=== PATIENT | female | born 1995 | race Caucasian/White ===

== ENCOUNTER 2018-06-20 09:16 | Emergency (ER) | payer MEDICAID ==
[~2018-06-20] VITALS: Ht 160 cm; Wt 111.6 kg
[~2018-06-20 09:16] MED LIST: WELLBUTRIN XL150 MG PO
[2018-06-20] MEDS ORDERED: CEPHALEXIN500 MG PO (12:05)
[2018-06-20] MEDS ORDERED: ZOFRAN ODT4 MG PO (12:05)
== END 2018-06-20 12:22 | disposition home or self-care (01) ==
LOC: ED 09:16
DX: J01.90 Acute sinusitis, unspecified (principal); F17.200 Nicotine dependence, unspecified, uncomplicated; Z88.0 Allergy status to penicillin; Z79.82 Long term (current) use of aspirin
CPT/HCPCS: 81001; 84703; 99283

== ENCOUNTER 2018-09-17 20:48 | Emergency (ER) | payer MEDICAID ==
[~2018-09-17] VITALS: Ht 160 cm; Wt 111.6 kg
[~2018-09-17 20:48] MED LIST changes: +CEPHALEXIN500 MG PO; +ISENTRESS400 MG PO; +TRUVADA 200 MG1 EACH PO; +ZOFRAN ODT4 MG PO
--- OUTSIDE RECORDS SUMMARY | 2018-09-17 20:52 | XMS ---
PreManage Notification: PARADISE HARRINGTON Security Mat Repairer Events No recent Security Events currently on file CRITERIA MET - [facility] - 2 Visits in 30 Days CARE PROVIDERS There are no care providers on record at this time. Luis Daniel has no Care Guidelines for this patient. Ronna VISIT COUNT (12 MO.) 3 [facility] [place] [facility]. TOTAL 3 NOTE: Visits indicate total known visits. ED/C VISIT TRACKING (12 MO.) 09/17/2018 20:[address] [facility] [place] TYPE: Emergency COMPLAINT: - CHEST PAIN 08/27/2018 12:45 ANABELLE Brown OR TYPE: Emergency COMPLAINT: - NEEDLE STICK/INJURY DIAGNOSES: - Allergy status to penicillin - Puncture wound without foreign body of right thumb without damage to nail, initial encounter - Major depressive disorder, single episode, unspecified - Puncture wound without foreign body of right thumb without damage to nail, initial encounter - Allergy status to other antibiotic agents status - Contact with hypodermic needle, initial encounter - Allergy status to other drugs, medicaments and biological substances status - Nicotine dependence, unspecified, uncomplicated 06/20/2018 09:17 ANABELLE Brown OR TYPE: Emergency COMPLAINT: - POSS UTI/VOMITING/HEADACHE DIAGNOSES: - Dysuria - Nicotine dependence, unspecified, uncomplicated - Allergy status to penicillin - Acute sinusitis, unspecified - 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
--- NOTE | 2018-09-18 12:48 | EKG ---
[facility] [address] [facility] [place], [place] [address] Signed Normal sinus rhythm Normal ECG No previous ECGs available Confirmed by MIRIAM RINCON DO ([id number]) on 09/18/2018 12:48:29 PM Electronically Signed By: MIRIAM RINCON DO 09/18/18 1248 PATIENT NAME: PARADISE HARRINGTON NILA Electrocardiogram DATE OF : [birth year] PHYSICIAN: MIRIAM RINCON DO REPORT #: [id number] REPORT IS CONFIDENTIAL AND NOT TO BE RELEASED WITHOUT AUTHORIZATION
== END 2018-09-17 22:44 | disposition home or self-care (01) ==
LOC: ED 20:48
DX: R07.9 Chest pain, unspecified (principal); F31.9 Bipolar disorder, unspecified; F17.200 Nicotine dependence, unspecified, uncomplicated; Z88.0 Allergy status to penicillin; Z88.1 Allergy status to other antibiotic agents; Z88.8 Allergy status to other drugs, medicaments and biological substances; Z79.899 Other long term (current) drug therapy
CPT/HCPCS: 36415; 71045; 80053; 84484; 85025; 93005; 93010; 99285

== ENCOUNTER 2018-12-15 14:17 | Emergency (ER) | payer MEDICAID ==
[~2018-12-15] VITALS: Ht 160 cm; Wt 111.6 kg
[2018-12-15] MEDS ORDERED: ONDANSETRON ODT8 MG PO (17:38)
== END 2018-12-15 17:53 | disposition home or self-care (01) ==
LOC: ED 14:17
DX: J10.1 Influenza due to other identified influenza virus with other respiratory manifestations (principal); F31.9 Bipolar disorder, unspecified; F17.200 Nicotine dependence, unspecified, uncomplicated; Z88.0 Allergy status to penicillin; Z88.8 Allergy status to other drugs, medicaments and biological substances; Z88.1 Allergy status to other antibiotic agents
CPT/HCPCS: 80053; 84703; 85025; 87081; 87502; 87880; 96361; 96374; 96375; 99284-25; J1885; J2405; J7030

== ENCOUNTER 2019-03-05 21:37 | Emergency (ER) | payer MEDICAID ==
[~2019-03-05] VITALS: Ht 160 cm; Wt 111.6 kg
[~2019-03-05 21:37] MED LIST changes: +ONDANSETRON ODT8 MG PO
[2019-03-05] MEDS ORDERED: VENTOLIN HFA18 GM INH (22:12)
[2019-03-06] MEDS ORDERED: OMEPRAZOLE20 MG PO (00:11)
== END 2019-03-06 00:30 | disposition home or self-care (01) ==
LOC: ED 21:37
DX: K30 Functional dyspepsia (principal); F31.9 Bipolar disorder, unspecified; F17.200 Nicotine dependence, unspecified, uncomplicated; Z88.0 Allergy status to penicillin; Z88.1 Allergy status to other antibiotic agents; Z88.6 Allergy status to analgesic agent
CPT/HCPCS: 80053; 81001; 84703; 85025; 96361; 96374; 96375; 99283-25; C9113; J2405; J7030

== ENCOUNTER 2019-10-13 21:35 | Emergency (ER) | payer MEDICAID ==
[~2019-10-13] VITALS: Ht 160 cm; Wt 129.3 kg
[~2019-10-13 21:35] MED LIST changes: +OMEPRAZOLE20 MG PO; +VENTOLIN HFA18 GM INH
--- OUTSIDE RECORDS SUMMARY | 2019-10-13 21:38 | XMS ---
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 Events No recent Security Events currently on file CRITERIA MET - [facility] CARE PROVIDERS [facility] Other 12/31/2017-[facility] DCO PHONE: Unknown NATALYA KENNEY Primary Care Current PHONE: [phone] [facility] Primary Care [facility] PCP PHONE: Unknown GALILEO NULL Primary Care [facility] PHONE: Unknown [facility] Primary Care Current OR PHONE: Unknown Guidelines Source: [facility] Guidelines Date: 05/02/2019 Care Recommendation: - Pt\T\rsquo;s PCP is\T\nbsp;Natalya Kenney MULTI MISSION HELICOPTER AIRCREWMAN\T\nbsp;of [facility] [phone]. \T\nbsp; Pt\T\rsquo;s primary insurance is [employer].\T\nbsp; Pt is currently residing outside of the [facility] but has not yet updated OHP.\T\ nbsp; Please advise pt to call OHP at or to update their address.\T\nbsp; Name, Title, [facility], [facility] Dept.\T\rdquo;\T\nbsp;\T\ nbsp;\T\nbsp;Patient \T\nbsp;has not yet established with [facility], pt is utilizing the ED for primary care needs. Amy Weiss LPN, [facility] Dept. Additional care guidelines exist for the following facilities: [facility] [place] ( 03/07/2019 ) Ronna VISIT COUNT (12 MO.) 3 ANABELLE Alfredo TOTAL 3 NOTE: Visits indicate total known visits. ED/UCC VISIT TRACKING (12 MO.) 10/13/2019 21:35 ANABELLE Brown OR TYPE: Emergency COMPLAINT: - ANKLE INJURY 03/05/2019 21:38 ANA[facility]ELLE Brown OR TYPE: Emergency COMPLAINT: - HEARTBURN,VOMITING DIAGNOSES: - Functional dyspepsia - Allergy status to analgesic agent status - Lower abdominal pain, unspecified - Allergy status to other antibiotic agents status - Bipolar disorder, unspecified - Nicotine dependence, unspecified, uncomplicated - Allergy status to penicillin 12/15/2018 14:18 ANABELLE Brown OR TYPE: Emergency COMPLAINT: - HEADACHE,VOMITING DIAGNOSES: - Allergy status to other antibiotic agents status - Flu due to oth ident influenza virus w oth resp manifest - Bipolar disorder, unspecified - Allergy status to penicillin - Nicotine dependence, unspecified, uncomplicated - Allergy status to oth drug/meds/biol subst status - Headache INPATIENT VISIT TRACKING (12 MO.) No inpatient visits to display in this time frame [email or web address]
[2019-10-13] MEDS ORDERED: QVAR REDIHALE10.6 G1 (22:09)
[2019-10-13] MEDS ORDERED: CRUTCH1 EACH (23:44)
== END 2019-10-14 00:14 | disposition home or self-care (01) ==
LOC: ED 21:35
DX: S93.401A Sprain of unspecified ligament of right ankle, initial encounter (principal); F31.9 Bipolar disorder, unspecified; F17.200 Nicotine dependence, unspecified, uncomplicated; Z88.0 Allergy status to penicillin; Z88.6 Allergy status to analgesic agent; Z88.1 Allergy status to other antibiotic agents; Z79.899 Other long term (current) drug therapy; X50.9XXA Other and unspecified overexertion or strenuous movements or postures, initial encounter
CPT/HCPCS: 73610; 99283-25; A9270

== ENCOUNTER → 2020-09-22 | Emergency (ER) | payer MEDICAID ==
[~2020-09-22] VITALS: Ht 162.6 cm; Wt 127.0 kg
[~2020-09-22] MED LIST changes: +CRUTCH1 EACH; +QVAR REDIHALE10.6 G1
--- OUTSIDE RECORDS SUMMARY | 2020-09-22 21:44 | XMS ---
PreManage Notification: PARADISE HARRINGTON Security Grant Specialist Events No recent Security Events currently on file CRITERIA MET - Group Notification - [facility] - Has Care Guidelines CARE PROVIDERS There are no care providers on record at this time. Guidelines Source: [facility] Guidelines Date: 05/02/2019 Care Recommendation: - Pt\T\rsquo;s PCP is\T\nbsp;Natalya Kenney ROCKET ENGINE MECHANIC\T\nbsp;of [facility] [phone]. \T\nbsp; Pt\T\rsquo;s primary insurance is [employer].\T\nbsp; Pt is currently residing outside of the [facility] but has not yet updated OHP.\T\ nbsp; Please advise pt to call OHP at or to update their address.\T\nbsp; Name, Title, [facility], [facility] Dept.\T\rdquo;\T\nbsp;\T\ nbsp;\T\nbsp;Patient \T\nbsp;has not yet established with [facility], pt is utilizing the ED for primary care needs. Amy Weiss LPN, [facility] Dept. Additional care guidelines exist for the following facilities: [facility] ( 03/07/2019 ) Ronna VISIT COUNT (12 MO.) [address] [place] [address] TOTAL 2 NOTE: Visits indicate total known visits. ED/UCC VISIT TRACKING (12 MO.) 09/22/2020 21:42 [facility]ELLE Brown OR TYPE: Emergency COMPLAINT: - COUGH/FEVER 10/13/2019 21:35 ANABELLE Brown OR TYPE: Emergency COMPLAINT: - ANKLE INJURY DIAGNOSES: - Allergy status to analgesic agent - Allergy status to other antibiotic agents - Nicotine dependence, unspecified, uncomplicated - Bipolar disorder, unspecified - Allergy status to penicillin - Sprain of unspecified ligament of right ankle, initial encounter - Other and unspecified overexertion or strenuous movements or postures, initial encounter - Other medical terminologist (current) drug therapy INPATIENT VISIT TRACKING (12 MO.) No inpatient visits to display in this time frame [email or web address]
--- NOTE | 2020-09-25 00:35 | PATH ---
[facility] [address] [place], [place] [address] Signed ORDERING PHYSICIAN: Mercedes Riddle MD PATIENT NAME: PARADISE HARRINGTON GENDER: F : 1995 Prior History: No cases found. SPECIMEN(S): No Source Given MOLECULAR PATHOLOGY RESULTS: SARS-CoV-2 Not Detected ADDITIONAL NOTES.: The Finger Fusion SARS-CoV-2 Assay is a multiplex real-time PCR (RT-PCR) in vitro diagnostic test intended for the qualitative detection of RNA from SARS-CoV-2 from individuals who meet COVID-19 clinical and/or epidemiological criteria. In general, SARS-CoV-2 RNA can be detected during the acute phase of infection. Positive results indicate the presence of SARS-CoV-2 RNA. Clinical correlation with patient history and other diagnostic information is necessary to determine patient infection status. Positive results do not rule out bacterial infection or co-infection with other viruses. Negative results do not preclude SARS-CoV-2 infection and should not be used as the sole basis for patient management decisions. Negative results must be combined with other clinical observations, patient history, and epidemiological information. The Finger Fusion SARS-CoV-2 Assay is not yet approved or cleared by the [place] FDA. When there are no FDA-approved or cleared tests available, and other criteria are met, FDA can make tests available under an emergency access mechanism called an Emergency Use Authorization (EUA). The EUA for this test is supported by the Supervisor Housecleaner of Health and Human Service's (HHS's) declaration that circumstances exist to justify the emergency use of in vitro diagnostics for the detection and/or diagnosis of the virus that causes COVID-19. This EUA will remain in effect for the duration of the COVID-19 declaration justifying emergency of IVDs, unless it is terminated or revoked by FDA, after which the test may no longer be used. The Finger Fusion SARS-CoV-2 Assay is for use only under EUA PATIENT NAME: PARADISE HARRINGTON EMILY NILA PATHOLOGY DATE OF : [birth year] REPORT #: [id number] PHYSICIAN: JOSE MARIA PATHOLOGY PCP: NO PRIMARY CARE PHYSICIAN REPORT IS CONFIDENTIAL AND NOT TO BE RELEASED WITHOUT AUTHORIZATION [facility] [address] [place], [place] [address] Signed in laboratories certified under the Clinical Laboratory Improvement Amendments of 1988 (CLIA) to perform high complexity tests. [facility] is certified under CLIA to perform high complexity clinical laboratory testing. Melina Paris PERFORMING LABORATORY.: Molecular testing was performed by [facility] [place] [address] (Music Specialist: Catarino Nunn D.O.; CLIA#: [id number]) Diagnostician: System Interface Pathologist Electronically Signed 09/25/2020 Copies: ~ PATIENT NAME: PARADISE HARRINGTON [facility] PATHOLOGY DATE OF : [birth year] REPORT #: [id number] PHYSICIAN: JOSE MARIA WALLER PCP: NO PRIMARY CARE PHYSICIAN REPORT IS CONFIDENTIAL AND NOT TO BE RELEASED WITHOUT AUTHORIZATION
== END ==
LOC: ED 21:42
DX: J45.901 Unspecified asthma with (acute) exacerbation (principal); Z20.828 Contact with and (suspected) exposure to other viral communicable diseases; F31.9 Bipolar disorder, unspecified; F17.200 Nicotine dependence, unspecified, uncomplicated; Z88.0 Allergy status to penicillin; Z88.8 Allergy status to other drugs, medicaments and biological substances; Z88.1 Allergy status to other antibiotic agents; Z79.899 Other long term (current) drug therapy
CPT/HCPCS: 71045; 80053; 83605; 84703; 85025; 85610; 85730; 87502; 94644; 96374; 99285-25; C9803; J2930

== ENCOUNTER 2022-04-13 08:40 | Inpatient (IN) | payer OTHER ==
--- NOTE | 2022-04-13 13:17 | NUR ---
04/13/22 1317 Skye Giang 1304 PATIENT INTO ROOM FROM OR. ALERT AND ORIENTED. BREATHING EQUAL AND UNLABORED ON ROOM AIR. OXYGEN SATURATIONS 100%. PATIENT REPORTS PAIN AT 4/10. DENIES ANY NAUSEA. UNABLE TO ASSESS FUNDUS. MONITORING BLEEDING WITH DIALLO PAD. 1310 PATIENT ALERT AND ORIENTED. BREATHING EQUAL AND UNLABORED ON ROOM AIR. PATIENT HEAD OF BED ELEVATED. UNABLE TO ASSESS FUNDUS DUE TO PATIENT SIZE. CONTINUE TO DO FUNDAL MASSAGE AND CHECKING FOR BLEEDING.
--- NOTE | 2022-04-14 12:35 | OR ---
[facility] [address] [place], [place] [address] Signed DATE OF OPERATION: 04/13/2022 SURGEON: Valerio Olivares MD PREOPERATIVE DIAGNOSIS: Marginal placental abruption, nonreassuring heart rate tracing, polyhydramnios, and labor. POSTOPERATIVE DIAGNOSIS: Marginal placental abruption, nonreassuring heart rate tracing, polyhydramnios, and labor plus posterior vertex presentation. PROCEDURE: Primary low transverse segment section, delivery of live male . CERTIFIED COURT INTERPRETER: Derik Scott D.O. ANESTHESIA: Spinal. ESTIMATED BLOOD LOSS: 500 mL. COMPLICATIONS: None. DRAINS: Saha to bladder. FINDINGS: Live male , Apgars 3/7/7, weight 6 pounds 7 ounces. Uterine cavity had small amount of clot already inside the cavity and the edge of the placenta appeared to have very slight clot consistent with a small abruption, moderate amount of fluid in the amniotic cavity. That appeared somewhat dark, but not meconium. The fetus was in the vertex OP presentation. Normal ovaries bilateral. The left tube had a small paratubal cyst present. Electronically Signed By: VALERIO OLIVARES MD 04/14/22 1235 PATIENT NAME: PARADISE HARRINGTON [facility] OPERATIVE REPORT DATE OF : [birth year] REPORT #: [id number] PHYSICIAN: VALERIO OLIVARES MD PCP: NO PRIMARY CARE PHYSICIAN REPORT IS CONFIDENTIAL AND NOT TO BE RELEASED WITHOUT AUTHORIZATION [facility] [address] [place], [place] [address] Signed DESCRIPTION OF PROCEDURE: The patient was brought to the operating room, placed in supine position. After adequate spinal anesthesia was obtained, was prepped and draped in usual sterile fashion. Saha catheter placed in the bladder. A Pfannenstiel skin incision was made with scalpel, extended through subcutaneous tissue with a scalpel. Fascia was nicked with scalpel and extended in transverse fashion using curved scissors. The underlying abdominal musculature was bluntly and sharply along the midline. The peritoneum was grasped with hemostats, elevated, nicked with scissors, extended vertical fashion using Metzenbaum scissors. The Jonathan self-retaining retractor was inserted into the incision and tightened in place. The lower uterine segment was carefully nicked with scalpel and finger dissection used to enlarge the incision in transverse fashion. A large amount of fluid came from the incision. The head was noted to be in a occiput posterior presentation. The infant head was easily delivered. The rest of the easily delivered and the cord quickly doubly clamped and cut and the infant passed off table to awaiting bill of materials clerk. Cord gases were obtained. The placenta was then manually removed and briefly inspected. The uterine cavity was explored a lap pad to remove any retained membranes. An angle stitch of 0 Monocryl was placed at one end of the incision and a running locking stitch of 0 Monocryl stitch starting at the other end used to close the incision. A second running stitch of 0 Monocryl was then used to imbricate the first layer. Both angles had slight amount of bleeding, which was controlled with avafhy-hl-bfnyz stitches of 0 Monocryl. When good hemostasis was obtained, the entire pelvis was irrigated, suctioned, and examined. Superficial bleeding spots cauterized with Bovie. There did seem to be more than normal superficial bleeding spots along the lower segment and the bladder flap and these were cauterized, but because of the raw areas, Tisseel was sprayed on the area after removal of the Jonathan. The small paratubal cyst was opened with the Bovie and drained of clear fluid. Good hemostasis was noted, so the anterior wall peritoneum closed using running stitch of 2-0 Vicryl suture. The abdominal musculature was reapproximated using interrupted stitches of 0 Vicryl suture. The abdominal wall incision was irrigated, suctioned, and examined and any bleeding spots cauterized with the Bovie. The fascia was closed using two running stitch of 0 Vicryl suture meeting in the midline. Subcutaneous tissue was irrigated, suctioned, and examined, and any bleeding spots cauterized with the Bovie. Subcutaneous tissue was then closed using interrupted stitches of 3-0 Vicryl sutures. Skin was reapproximated using skin clips. The patient tolerated the procedure well, went to recovery room in good condition. The sponge, needle, instrument count correct in procedure. Cord gases were sent to the lab. Valerio Olivares MD Electronically Signed By: VALERIO OLIVARES MD 04/14/22 1235 PATIENT NAME: PARADISE HARRINGTON NILA OPERATIVE REPORT DATE OF : [birth year] REPORT #: [id number] PHYSICIAN: VALERIO OLIVARES MD PCP: NO PRIMARY CARE PHYSICIAN REPORT IS CONFIDENTIAL AND NOT TO BE RELEASED WITHOUT AUTHORIZATION [address] [address] Signed [facility] /[id number] Copies: ~ Electronically Signed By: VALERIO OLIVARES MD 04/14/22 1235 PATIENT NAME: PARADISE HARRINGTON [facility] OPERATIVE REPORT DATE OF : [birth year] REPORT #: [id number] PHYSICIAN: VALERIO OLIVARES MD PCP: NO PRIMARY CARE PHYSICIAN REPORT IS CONFIDENTIAL AND NOT TO BE RELEASED WITHOUT AUTHORIZATION
--- NOTE | 2022-04-14 12:42 | PR ---
[facility] [facility] [address] [facility] [place], [place] [address] Signed PP Progress Notes Datetime Report Generated by CPN: 04/14/2022 12:42 SUBJECTIVE: [id number] Pain: Within Normal Limits Nausea/Vomiting: Denies Vital Signs: [id number] Vital Signs: Reviewed; Within Normal Limits EXAM: Ongoing Abdomen/Uterus: Normal Lochia: Normal Extremities: Normal Incision: Normal IMPRESSION/PLAN/PROCEDURES: [id number] Impression: Normal Progression Plan: Continue Present Management Procedures: None Progress Notes: Doing well, moving slowly, but voiding without difficulty, sitting up in chair, tolerating food well. Babu transported to [facility], so will try to get patient discharged tomorrow. Signing Physician: Sandra Medellin MD Copies: ~ *Electronically Signed* 04/14/22 1242 SANDRA MEDELLIN MD PATIENT NAME: PARADISE HARRINGTON [facility] PROGRESS NOTE DATE OF : [birth year] PHYSICIAN: SANDRA MEDELLIN MD RPT #: [id number] REPORT IS CONFIDENTIAL AND NOT TO BE RELEASED WITHOUT AUTHORIZATION
--- NOTE | 2022-04-15 11:19 | PR ---
[facility] [address] [place] [facility] [place], [place] [address] Signed PP Progress Notes Datetime Report Generated by CPN: 04/15/2022 11:19 SUBJECTIVE: [id number] Pain: Within Normal Limits Nausea/Vomiting: Denies Vital Signs: [id number] Vital Signs: Reviewed; Within Normal Limits Notable Details: PP Hgb/HCt = 9.5/29.2 EXAM: Ongoing Abdomen/Uterus: Normal Lochia: Normal Extremities: Normal Incision: Normal Exam Comments: obese, abdomen soft, no evidence of infection, incision healing well, shellie in place IMPRESSION/PLAN/PROCEDURES: [id number] Impression: Normal Progression Other Impression: PP Anemai Plan: Discharge Procedures: None Progress Notes: Doing well, without complaint, anxious to go home, to see baby @ [facility]. Baby doing well, off O2, plan to stop IV today per patient. Signing Physician: Valerio Medellin MD Copies: ~ *Electronically Signed* 04/15/22 1119 VALERIO MEDELLIN MD PATIENT NAME: LENPARADISE EMILY [facility] PROGRESS NOTE DATE OF : [birth year] PHYSICIAN: VALERIO MEDELLIN MD RPT #: [id number] REPORT IS CONFIDENTIAL AND NOT TO BE RELEASED WITHOUT AUTHORIZATION
== END 2022-04-15 12:50 | disposition home or self-care (01) | DRG 786 ==
LOC: US 08:40 → FBCO 08:40 → US 11:00 → FBC 11:25
PROVIDERS: ADMIT General Practice; ATTEND General Practice
PROC: 10D00Z1 Extraction of Products of Conception, Low, Open Approach (ICD-10-PCS; principal; 2022-04-13 12:15)
DX: O40.3XX0 Polyhydramnios, third trimester, not applicable or unspecified (principal); O45.93 Premature separation of placenta, unspecified, third trimester; O60.13X0 Preterm labor second trimester with preterm delivery third trimester, not applicable or unspecified; O76 Abnormality in fetal heart rate and rhythm complicating labor and delivery; Z3A.35 35 weeks gestation of pregnancy; Z37.0 Single live birth; Z67.10 Type A blood, Rh positive; Z87.891 Personal history of nicotine dependence; Z20.822 Contact with and (suspected) exposure to COVID-19
CPT/HCPCS: 01961; 36415; 82565; 82570; 82803; 84156; 84450; 84520; 84550; 85027; 87502; A9270; J0690; J1644; J2001; J2274; J2405; J2590; J3010; J7121; U0003

== ENCOUNTER 2022-10-23 14:55 | Emergency (ER) | payer OTHER ==
[~2022-10-23] VITALS: Ht 162.6 cm; Wt 145.2 kg
--- OUTSIDE RECORDS SUMMARY | 2022-10-23 15:02 | XMS ---
PreManage Notification: PARADISE HARRINGTON Security Register Clerk Events No recent Security Events currently on file CRITERIA MET - Group Notification CARE PROVIDERS There are no care providers on record at this time. Care Guidelines exist for the following facilities: [facility] ( 12/27/2020 ) [facility] ( 12/27/2020 ) Ronna VISIT COUNT (12 MO.) 1 Danielito Solorio 1 ANABELLE Gamez July TOTAL 2 NOTE: Visits indicate total known visits. ED/UCC VISIT TRACKING (12 MO.) 10/23/2022 14:56 ANABELLE Brown OR TYPE: Emergency COMPLAINT: - SKIN REDNESS ON CHEST 12/07/2021 16:51 Danielito MONDRAGON OR TYPE: Emergency DIAGNOSES: - Encounter for supervision of normal , unspecified, unspecified trimester - "uterus pain" denies vaginal pain; increasing PO fluids without improvement; 16 weeks - Calculus of bile duct without cholangitis or cholecystitis without obstruction - Calculus of gallbladder without cholecystitis without obstruction INPATIENT VISIT TRACKING (12 MO.) 04/13/2022 11:25 ANABELLE Brown OR TYPE: [facility] COMPLAINT: - C SECTION DELIVERY DIAGNOSES: - Polyhydramnios, third trimester, not applicable or unspecified - Abnormality in heart rate and rhythm complicating labor and delivery - Type A blood, Rh positive - labor second trimester with delivery third trimester, not applicable or unspecified - 35 weeks gestation of - 35 weeks gestation of - Personal history of nicotine dependence - Single live - Personal history of nicotine dependence - Abnormality in heart rate and rhythm complicating labor and delivery - Contact with and (suspected) exposure to COVID-19 - Premature separation of placenta, unspecified, third trimester - Premature separation of placenta, unspecified, third trimester - Type A blood, Rh positive - Contact with and (suspected) exposure to COVID-19 - labor second trimester with delivery third trimester, not applicable or unspecified - Single live 12/07/2021 16:51 Danielito MONDRAGON OR TYPE: [facility] DIAGNOSES: - Calculus of gallbladder without cholecystitis without obstruction - Calculus of bile duct without cholangitis or cholecystitis without obstruction - Encounter for supervision of normal , unspecified, unspecified trimester [email or web address]
[2022-10-23] MEDS ORDERED: CEPHALEXIN500 M1 PO (18:05)
== END 2022-10-23 18:18 | disposition home or self-care (01) ==
LOC: ED 14:55
DX: L03.313 Cellulitis of chest wall (principal); J45.909 Unspecified asthma, uncomplicated; F17.200 Nicotine dependence, unspecified, uncomplicated; Z88.0 Allergy status to penicillin; Z88.1 Allergy status to other antibiotic agents; Z88.6 Allergy status to analgesic agent; Z79.899 Other long term (current) drug therapy
CPT/HCPCS: 90471; 90714; 99283-25; A9270

== ENCOUNTER 2022-12-23 19:28 | Emergency (ER) | payer OTHER ==
[~2022-12-23] VITALS: Ht 162.6 cm; Wt 142.5 kg
[~2022-12-23 19:28] MED LIST changes: +CEPHALEXIN500 M1 PO
--- OUTSIDE RECORDS SUMMARY | 2022-12-23 19:38 | XMS ---
PreManage Notification: PARADISE HARRINGTON Security Spar Machine Operator Events No recent Security Events currently on file CRITERIA MET - Group Notification CARE PROVIDERS There are no care providers on record at this time. Care Guidelines exist for the following facilities: [facility] ( 12/27/2020 ) [facility] ( 12/27/2020 ) Ronna VISIT COUNT (12 MO.) [address] [facility] TOTAL 2 NOTE: Visits indicate total known visits. ED/UCC VISIT TRACKING (12 MO.) 12/23/2022 19:30 ANABELLE Brown OR TYPE: Emergency COMPLAINT: - HEADACHE 4 DAYS 10/23/2022 14:56 ANABELLE Brown OR TYPE: Emergency COMPLAINT: - SKIN REDNESS ON CHEST DIAGNOSES: - Unspecified asthma, uncomplicated - Allergy status to other antibiotic agents - Other chest pain - Other extermination supervisor (current) drug therapy - Allergy status to analgesic agent - Cellulitis of chest wall - Allergy status to penicillin - Nicotine dependence, unspecified, uncomplicated INPATIENT VISIT TRACKING (12 MO.) 04/13/2022 11:25 ANABELLE Brown OR TYPE: [facility] COMPLAINT: - C SECTION DELIVERY DIAGNOSES: - Type A blood, Rh positive - Contact with and (suspected) exposure to COVID-19 - labor second trimester with delivery third trimester, not applicable or unspecified - Single live - Polyhydramnios, third trimester, not applicable or [...] Premature separation of placenta, unspecified, third trimester [email or web address]
== END 2022-12-23 21:15 | disposition home or self-care (01) ==
LOC: ED 19:28
DX: R51.9 Headache, unspecified (principal); J45.909 Unspecified asthma, uncomplicated; F17.200 Nicotine dependence, unspecified, uncomplicated; Z88.0 Allergy status to penicillin; Z88.1 Allergy status to other antibiotic agents; Z79.899 Other long term (current) drug therapy
CPT/HCPCS: 96374; 96375; 99283-25; J1200; J1885; J2765; J7030

== ENCOUNTER 2023-09-16 20:44 | Emergency (ER) | payer OTHER ==
[~2023-09-16] VITALS: Ht 162.6 cm; Wt 160.1 kg
--- OUTSIDE RECORDS SUMMARY | 2023-09-16 20:52 | XMS ---
PreManage Notification: PARADISE HARRINGTON Security Sea Shell Gatherer Events No recent Security Events currently on file CRITERIA MET - Group Notification CARE PROVIDERS -, [place]- Dentist: Engineer Intern Pending Sale To [facility] PHONE: [phone] Care Guidelines exist for the following facilities: [facility] ( 12/27/2020 ) [facility] ( 12/27/2020 ) Ronna VISIT COUNT (12 MO.) 3 ANABELLE Alfredo TOTAL 3 NOTE: Visits indicate total known visits. ED/UCC VISIT TRACKING (12 MO.) 09/16/2023 20:46 ANABELLE Brown OR TYPE: Emergency COMPLAINT: - CP THROAT SWELLING 12/23/2022 19:30 ANABELLE Brown OR TYPE: Emergency COMPLAINT: - HEADACHE 4 DAYS DIAGNOSES: - Allergy status to other antibiotic agents - Allergy status to penicillin - Headache, unspecified - Nicotine dependence, unspecified, uncomplicated - Other predatory animal exterminator (current) drug therapy - Unspecified asthma, uncomplicated 10/23/2022 14:[address] [facility] [facility] [place] TYPE: Emergency COMPLAINT: - SKIN REDNESS ON CHEST DIAGNOSES: - Allergy status to analgesic agent - Allergy status to other antibiotic agents - Allergy status to penicillin - Cellulitis of chest wall - Nicotine dependence, unspecified, uncomplicated - Other chest pain - Other fci (current) drug therapy - Unspecified asthma, uncomplicated INPATIENT VISIT TRACKING (12 MO.) No inpatient visits to display in this time frame [email or web address]
[2023-09-16 21:47] LABS: INFLUENZA B NAA NEGATIVE (NEGATIVE); RESPIRATORY SYNCYTIAL VIR NAA NEGATIVE (NEGATIVE)
[2023-09-16] MEDS ORDERED: BACTRIM DS TAB1 EACH PO (22:22)
[2023-09-16 22:34] VITALS: BP 139/84
== END 2023-09-16 22:34 | disposition home or self-care (01) ==
LOC: ED 20:44
PROVIDERS: Family Medicine
DX: J02.0 Streptococcal pharyngitis (principal); Z20.822 Contact with and (suspected) exposure to COVID-19; J45.909 Unspecified asthma, uncomplicated; F31.9 Bipolar disorder, unspecified; F17.200 Nicotine dependence, unspecified, uncomplicated; Z88.0 Allergy status to penicillin; Z88.1 Allergy status to other antibiotic agents; Z88.8 Allergy status to other drugs, medicaments and biological substances; Z79.899 Other long term (current) drug therapy
CPT/HCPCS: 87502; 87651; A9270; C9803; U0002

== ENCOUNTER 2025-01-23 12:48 | Emergency (ER) | payer OTHER ==
[~2025-01-23] VITALS: Ht 162.6 cm; Wt 165.4 kg
[~2025-01-23 12:48] MED LIST changes: +BACTRIM DS TAB1 EACH PO
--- OUTSIDE RECORDS SUMMARY | 2025-01-23 12:55 | XMS ---
PreManage Notification: [facility] Security Education Administrative Assistant Events No recent Security Events currently on file CRITERIA MET - Group Notification CARE PROVIDERS SHER [facility]UMM[facility] Physician Current PHONE: [phone] Care Guidelines exist for the following facilities: [facility] ( 05/02/2019 ) [facility] [place] ( 03/07/2019 ) [facility] VISIT COUNT (12 MO.) 2 [facility] Alfredo TOTAL 2 NOTE: Visits indicate total known visits. ED/UCC VISIT TRACKING (12 MO.) 01/23/2025 12:49 [facility] [place] TYPE: Emergency COMPLAINT: - DENTAL PAIN 01/27/2024 06:24 [facility] [place] TYPE: Emergency COMPLAINT: - CHEST PAIN DIAGNOSES: - Allergy status to other antibiotic agents - Allergy status to other drugs, medicaments and biological substances - Allergy status to penicillin - Anxiety disorder, unspecified - Bipolar disorder, unspecified - Morbid (severe) obesity due to excess calories - Nicotine dependence, unspecified, uncomplicated - Other termite control technician (current) drug therapy - Panic disorder [episodic paroxysmal anxiety] - Poisoning by cannabis, accidental (unintentional), initial encounter - Unspecified asthma, uncomplicated INPATIENT VISIT TRACKING (12 MO.) No inpatient visits to display in this time frame [id number]
[2025-01-23] MEDS ORDERED: ONDANSETRON ODT4 MG PO (14:21)
[2025-01-23] MEDS ORDERED: CLINDAMYCIN HC300 MG PO (14:21)
[2025-01-23] MEDS ORDERED: HYDROCODON-ACE1 EA10 PO (14:21)
[2025-01-23 14:33] VITALS: BP 133/103
== END 2025-01-23 14:34 | disposition home or self-care (01) ==
LOC: ED 12:48
DX: K03.81 Cracked tooth (principal); J45.909 Unspecified asthma, uncomplicated; F17.200 Nicotine dependence, unspecified, uncomplicated; Z88.0 Allergy status to penicillin; Z88.1 Allergy status to other antibiotic agents; Z88.6 Allergy status to analgesic agent; Z79.899 Other long term (current) drug therapy
CPT/HCPCS: 99282

== ENCOUNTER 2025-09-20 19:52 | Emergency (ER) | payer SELFPAY ==
[~2025-09-20] VITALS: Ht 162.6 cm; Wt 152.5 kg
[~2025-09-20 19:52] MED LIST changes: +CLINDAMYCIN HC300 MG PO; +HYDROCODON-ACE1 EA10 PO; +ONDANSETRON ODT4 MG PO
--- OUTSIDE RECORDS SUMMARY | 2025-09-20 19:59 | XMS ---
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 Care Guidelines exist for the following facilities: [facility] ( 05/02/2019 ) [facility] ( 03/07/2019 ) [place] VISIT COUNT (12 MO.) [address] [facility] TOTAL 2 NOTE: Visits indicate total known visits. ED/UCC VISIT TRACKING (12 MO.) 09/20/2025 19:52 [facility] [place] TYPE: Emergency COMPLAINT: - ABD PAIN 01/23/2025 12:49 [facility] [place] TYPE: Emergency COMPLAINT: - DENTAL PAIN DIAGNOSES: - Allergy status to analgesic agent - Allergy status to other antibiotic agents - Allergy status to penicillin - Cracked tooth - Nicotine dependence, unspecified, uncomplicated - Other salvage determiner (current) drug therapy - Other specified disorders of teeth and supporting structures - Unspecified asthma, uncomplicated INPATIENT VISIT TRACKING (12 MO.) No inpatient visits to display in this time frame [email or web address]
[2025-09-20 22:42] LABS: BASOPHILS 0.4 % (0.1-1.2); EOSINOPHILS 0.9 % (0.7-5.8); LYMPHOCYTES 36.8 % (19.3-51.7); MCH 29.6 PG (25.6-32.2); MCHC 34.3 g/dL (32.2-35.5); MCV 86.3 fL (79.4-94.8); MONOCYTES 7.1 % (4.7-12.5); NEUTROPHILS 54.6 % (34.0-71.1); RBC 5.24 M/uL (3.93-5.22)
[2025-09-20 22:57] LABS: ALT (SGPT) 33.0 U/L (14-59); AST (SGOT) 18.0 U/L (15-37); GLOMERULAR FILTRATION RATE,EST 96.0 mL/min (>60); PROTEIN, TOTAL 8.2 g/dL (6.4-8.2); UREA NITROGEN 15.0 mg/dL (7-18)
[2025-09-21 01:05] LABS: BLOOD/HGB, URINE NEGATIVE (Negative); KETONE, URINE NEGATIVE (Negative); LEUK ESTERASE, URINE NEGATIVE (negative); NITRITE, URINE NEGATIVE (negative)
[2025-09-21 01:25] VITALS: BP 105/54
== END 2025-09-21 01:26 | disposition left against medical advice (07) ==
LOC: ED 19:52
PROVIDERS: Emergency Medicine
DX: R10.9 Unspecified abdominal pain (principal); J45.909 Unspecified asthma, uncomplicated; F17.200 Nicotine dependence, unspecified, uncomplicated; Z88.0 Allergy status to penicillin; Z88.6 Allergy status to analgesic agent
CPT/HCPCS: 36415; 74177; 80053; 81003; 83690; 84703; 85025; 99284; Q9967